=== PATIENT | male | born 1955 | race African-American/Black ===

== ENCOUNTER 2019-11-25 11:07 | Emergency (ER) | payer MEDICAID ==
[~2019-11-25] VITALS: Ht 182.9 cm; Wt 80.0 kg
[2019-11-25 12:58] LABS: BASOPHILS % 0.5 % (0.0-2.0); EOSINOPHILS % 14.2 % (0.0-5.0); HEMOGLOBIN. 14.7 g/dL (14.0-18.0); LYMPHOCYTES % 25.7 % (20.0-50.0); MEAN CORPUSCULAR HEMOGLOBIN 30.1 pg (28.0-32.0); MEAN CORPUSCULAR VOLUME 90.3 fL (80.0-94.0); MEAN PLATELET VOLUME 9.4 fl (7.4-10.4); MONOCYTES % 10.9 % (2.0-8.0); NEUTROPHILS % 48.7 % (40.0-76.0); PLATELET 215 x1000/uL (130-400); RED BLOOD CELL COUNT 4.87 mill/uL (4.7-6.1); RED CELL DISTRIBUTION WIDTH 15.6 % (11.6-14.6)
[2019-11-25] MEDS ORDERED: ALBUTEROL (0.083%) 2.5MG/3ML NEB HHN STA (13:03)
[2019-11-25] MEDS ORDERED: PREDNISONE 20MG TABLET PO STA (13:03)
[2019-11-25] MEDS ORDERED: IPRATROPIUM BROMIDE (0.02%) 0.5MG/2.5ML NEB HHN STA (13:03)
[2019-11-25 13:04] LABS: CHLORIDE 109 mEq/L (98-107)
[2019-11-25 13:09] LABS: ETHANOL BLOOD < 10 mg/dL
[2019-11-25 14:00] VITALS: BP 137/97
== END 2019-11-25 16:04 | disposition home or self-care (01) ==
LOC: ER 11:07
DX: J44.1 Chronic obstructive pulmonary disease with (acute) exacerbation (principal); I10 Essential (primary) hypertension; E53.8 Deficiency of other specified B group vitamins
CPT/HCPCS: 36415; 71045; 80053; 80320; 83880; 84484; 85025; 93005; 94644; 99285; J7512; Z7610; G0480